=== PATIENT | female | born 1955 | race Caucasian/White ===

== ENCOUNTER 2022-11-08 08:00 | Outpatient (CLI) | payer MEDICARE, OTHER ==
--- NOTE | 2022-11-08 14:31 | XRAY Report ---
PROCEDURE: Hip BILAT INDICATIONS: BILAT HIP PAIN TECHNIQUE AP pelvis and lateral view both hips.. COMPARISON: None FINDINGS: Bones: No fractures or dislocations. No suspicious bony lesions. The visualized pelvic ring appear s intact. There is moderate to severe osteoarthritic type degenerative change involving the patient's right hip with mild osteoarthritic type degenerative change involving the left hip. Soft tissues: No suspicious soft tissue calcifications or masses. IMPRESSION: 1. No evidence for acute osseous abnormality involving either the right or left hip or pelvis. 2. Moderate to severe osteoarthritic type degenerative change right hip. 3. Mild osteoarthritic degenerative changes left hip. Reviewed by: Rios Bourgeois MD on 11/08/2022 2:29 PM PDT Approved by: Rios Bourgeois MD on 11/08/2022 2:29 PM PDT Station ID: [id number]
== END 2022-11-08 23:59 | disposition home or self-care (01) ==
LOC: DI.WOS 08:00
PROVIDERS: ATTEND Physician Assistant Surgical
DX: M16.0 Bilateral primary osteoarthritis of hip (principal)

== ENCOUNTER 2023-04-21 11:16 | Outpatient (CLI) | payer MEDICARE, OTHER ==
[2023-04-21 11:35] LABS: BASOPHILS # (AUTO) 0.1 10^3/uL (0.0-0.1); EOSINOPHILS # (AUTO) 0.2 10^3/uL (0.0-0.7); EOSINOPHILS % (AUTO) 3.8 %; HCT - HEMATOCRIT 38.6 % (37.0-47.0); HGB - HEMOGLOBIN 12.3 g/dL (12.0-16.0); LYMPHOCYTES % (AUTO) 32.6 %; MEAN CORPUSCULAR HGB CONC 31.9 g/dL (32.0-36.0); MONOCYTES # (AUTO) 0.7 10^3/uL (0.0-1.0); MONOCYTES % (AUTO) 11.7 %; NEUTROPHILS # (AUTO) 3.1 10^3/uL (1.5-6.6); NEUTROPHILS % (AUTO) 50.7 %; PLT - PLATELET COUNT 337 10^3/uL (130-450); RED BLOOD COUNT 4.24 10^6/uL (4.20-5.40); RED CELL DISTRIBUTION WIDTH 13.1 % (12.0-15.0); WHITE BLOOD COUNT 6.1 x10^3/uL (4.8-10.8)
[2023-04-21 12:10] LABS: ALBUMIN 3.9 g/dL (3.2-5.5); CALCIUM 9.1 mg/dL (8.5-10.3); CREATININE 0.8 mg/dL (0.6-1.3); POTASSIUM 4.3 mmol/L (3.5-4.5)
[2023-04-21 13:13] LABS: ESTIMATED AVERAGE GLUCOSE 114 mg/dL (70-100); HEMOGLOBIN A1c% 5.6 % (4.27-6.07)
[2023-04-22 06:10] LABS: HCV AB Non Reactive (Non Reactive); HIV SCREEN 4TH GENERATION Non Reactive (Non Reactive)
== END 2023-04-21 11:17 | disposition home or self-care (01) ==
LOC: LAB 11:16
PROVIDERS: ATTEND Orthopaedic Surgery
DX: Z01.818 Encounter for other preprocedural examination (principal)
CPT/HCPCS: 36415; 80048; 82040; 83036; 84134; 85025; 86803; 93005; G0475; 87389

== ENCOUNTER 2023-05-27 09:28 | Outpatient (CLI) | payer MEDICARE, OTHER | END 2023-05-27 09:29 | disposition home or self-care (01) | LOC: LAB 09:28 | PROVIDERS: ATTEND Nurse Practitioner Acute Care | DX: Z53.9 Procedure and treatment not carried out, unspecified reason (principal) | CPT/HCPCS: 80053; 80061; 83036; 83721; 84443; 85025 ==

== ENCOUNTER 2023-05-30 15:49 | Outpatient (CLI) | payer MEDICARE, OTHER ==
[2023-05-30 16:12] LABS: BASOPHILS # (AUTO) 0.1 10^3/uL (0.0-0.1); BASOPHILS % (AUTO) 0.4 %; EOSINOPHILS # (AUTO) 0.2 10^3/uL (0.0-0.7); EOSINOPHILS % (AUTO) 1.7 %; HGB - HEMOGLOBIN 9.6 g/dL (12.0-16.0); LYMPHOCYTES % (AUTO) 25.2 %; MEAN CORPUSCULAR HEMOGLOBIN 28.4 pg (27.0-31.0); MEAN CORPUSCULAR VOLUME 88.8 fL (81.0-99.0); MEAN PLATELET VOLUME 8.9 fL (7.9-10.8); MONOCYTES # (AUTO) 1.4 10^3/uL (0.0-1.0); MONOCYTES % (AUTO) 11.3 %; NEUTROPHILS # (AUTO) 7.3 10^3/uL (1.5-6.6); NEUTROPHILS % (AUTO) 61.2 %; PLT - PLATELET COUNT 384 10^3/uL (130-450); RED BLOOD COUNT 3.38 10^6/uL (4.20-5.40); RED CELL DISTRIBUTION WIDTH 13.7 % (12.0-15.0)
[2023-05-30 16:42] LABS: THYROID STIMULATING HORMONE 0.63 uIU/mL (0.34-5.60)
[2023-05-30 16:56] LABS: ALBUMIN 3.8 g/dL (3.2-5.5); ALBUMIN/GLOBULIN RATIO 1.1 (1.0-2.2); ALKALINE PHOSPHATASE 83 IU/L (42-121); ALT ALANINE AMINOTRANSFERASE 22 IU/L (10-60); AST ASPARTATE AMINOTRANSFERASE 23 IU/L (10-42); BILIRUBIN,TOTAL 0.6 mg/dL (0.2-1.0); BUN - BLOOD UREA NITROGEN 13 mg/dL (6-20); CALCIUM 9.1 mg/dL (8.5-10.3); CARBON DIOXIDE - CO2 28 mmol/L (21-32); CHLORIDE 101 mmol/L (101-111); CHOL/HDL RATIO 3.5 (<4.4); CHOLESTEROL 180 mg/dL; CREATININE 0.7 mg/dL (0.6-1.3); GFR - MDRD 84 (>89); GLUCOSE 96 mg/dL (74-104); HDL CHOLESTEROL 52 mg/dL; LDL CHOLESTEROL,CALCULATED 111 mg/dL; LDL/HDL RATIO 2.1 (<4.4); POTASSIUM 3.9 mmol/L (3.5-4.5); SODIUM 136 mmol/L (135-145); TOTAL PROTEIN 7.3 g/dL (6.4-8.9); TRIGLYCERIDES 85 mg/dL (48-352); VLDL CHOLESTEROL 17 mg/dL
[2023-05-30 22:40] LABS: ESTIMATED AVERAGE GLUCOSE 108 mg/dL (70-100); HEMOGLOBIN A1c% 5.4 % (4.27-6.07)
== END 2023-05-30 15:50 | disposition home or self-care (01) ==
LOC: LAB 15:49
PROVIDERS: ATTEND Nurse Practitioner Acute Care
DX: Z13.228 Encounter for screening for other metabolic disorders (principal); Z13.220 Encounter for screening for lipoid disorders; Z13.1 Encounter for screening for diabetes mellitus; Z13.29 Encounter for screening for other suspected endocrine disorder; Z13.0 Encounter for screening for diseases of the blood and blood-forming organs and certain disorders involving the immune mechanism
CPT/HCPCS: 36415; 80053; 80061; 83036; 83721; 84443; 85025

== ENCOUNTER 2023-06-13 12:49 | Outpatient (CLI) | payer MEDICARE, OTHER ==
[2023-06-13 14:41] LABS: BASOPHILS # (AUTO) 0.1 10^3/uL (0.0-0.1); BASOPHILS % (AUTO) 0.9 %; EOSINOPHILS # (AUTO) 0.5 10^3/uL (0.0-0.7); EOSINOPHILS % (AUTO) 6.9 %; HCT - HEMATOCRIT 31.9 % (37.0-47.0); HGB - HEMOGLOBIN 9.9 g/dL (12.0-16.0); LYMPHOCYTES # (AUTO) 2.6 10^3/uL (1.5-3.5); LYMPHOCYTES % (AUTO) 37.3 %; MEAN CORPUSCULAR HEMOGLOBIN 27.6 pg (27.0-31.0); MEAN CORPUSCULAR VOLUME 88.9 fL (81.0-99.0); MONOCYTES # (AUTO) 0.9 10^3/uL (0.0-1.0); MONOCYTES % (AUTO) 12.7 %; NEUTROPHILS # (AUTO) 2.9 10^3/uL (1.5-6.6); NEUTROPHILS % (AUTO) 41.9 %; PLT - PLATELET COUNT 401 10^3/uL (130-450); RED BLOOD COUNT 3.59 10^6/uL (4.20-5.40); RED CELL DISTRIBUTION WIDTH 14.4 % (12.0-15.0); WHITE BLOOD COUNT 6.9 x10^3/uL (4.8-10.8)
[2023-06-13 17:11] LABS: CREATININE 0.8 mg/dL (0.6-1.3); POTASSIUM 4.1 mmol/L (3.5-4.5)
== END 2023-06-13 12:50 | disposition home or self-care (01) ==
LOC: LAB.S 12:49
PROVIDERS: ATTEND Nurse Practitioner Acute Care
DX: Z13.228 Encounter for screening for other metabolic disorders (principal); Z87.19 Personal history of other diseases of the digestive system
CPT/HCPCS: 36415; 80048; 85025

== ENCOUNTER 2023-08-20 10:23 | Outpatient (CLI) | payer MEDICARE, OTHER ==
[2023-08-20 10:46] LABS: BASOPHILS # (AUTO) 0.1 10^3/uL (0.0-0.1); BASOPHILS % (AUTO) 1.2 %; EOSINOPHILS # (AUTO) 0.2 10^3/uL (0.0-0.7); EOSINOPHILS % (AUTO) 2.8 %; HCT - HEMATOCRIT 35.1 % (37.0-47.0); HGB - HEMOGLOBIN 10.6 g/dL (12.0-16.0); LYMPHOCYTES # (AUTO) 2.4 10^3/uL (1.5-3.5); LYMPHOCYTES % (AUTO) 35.7 %; MEAN CORPUSCULAR HEMOGLOBIN 25.6 pg (27.0-31.0); MEAN CORPUSCULAR HGB CONC 30.2 g/dL (32.0-36.0); MEAN CORPUSCULAR VOLUME 84.8 fL (81.0-99.0); MEAN PLATELET VOLUME 8.8 fL (7.9-10.8); MONOCYTES # (AUTO) 0.8 10^3/uL (0.0-1.0); NEUTROPHILS # (AUTO) 3.3 10^3/uL (1.5-6.6); NEUTROPHILS % (AUTO) 48.2 %; PLT - PLATELET COUNT 358 10^3/uL (130-450); RED BLOOD COUNT 4.14 10^6/uL (4.20-5.40); RED CELL DISTRIBUTION WIDTH 14.4 % (12.0-15.0); WHITE BLOOD COUNT 6.8 x10^3/uL (4.8-10.8)
[2023-08-20 11:02] LABS: CALCIUM 9.2 mg/dL (8.5-10.3); CREATININE 0.8 mg/dL (0.6-1.3); POTASSIUM 4.2 mmol/L (3.5-4.5)
== END 2023-08-20 10:24 | disposition home or self-care (01) ==
LOC: LAB 10:23
DX: Z13.228 Encounter for screening for other metabolic disorders (principal); Z87.19 Personal history of other diseases of the digestive system
CPT/HCPCS: 36415; 80048; 85025

== ENCOUNTER 2023-11-22 08:43 | Outpatient (CLI) | payer MEDICARE, OTHER ==
[2023-11-22 15:07] LABS: BASOPHILS # (AUTO) 0.1 10^3/uL (0.0-0.1); BASOPHILS % (AUTO) 1.1 %; EOSINOPHILS # (AUTO) 0.2 10^3/uL (0.0-0.7); EOSINOPHILS % (AUTO) 3.4 %; HCT - HEMATOCRIT 36.7 % (37.0-47.0); HGB - HEMOGLOBIN 10.9 g/dL (12.0-16.0); LYMPHOCYTES # (AUTO) 2.8 10^3/uL (1.5-3.5); LYMPHOCYTES % (AUTO) 45.2 %; MEAN CORPUSCULAR HEMOGLOBIN 26.3 pg (27.0-31.0); MEAN CORPUSCULAR HGB CONC 29.7 g/dL (32.0-36.0); MEAN CORPUSCULAR VOLUME 88.6 fL (81.0-99.0); MEAN PLATELET VOLUME 9.6 fL (7.9-10.8); MONOCYTES # (AUTO) 0.8 10^3/uL (0.0-1.0); MONOCYTES % (AUTO) 12.7 %; NEUTROPHILS # (AUTO) 2.3 10^3/uL (1.5-6.6); NEUTROPHILS % (AUTO) 37.4 %; PLT - PLATELET COUNT 347 10^3/uL (130-450); RED BLOOD COUNT 4.14 10^6/uL (4.20-5.40); RED CELL DISTRIBUTION WIDTH 15.4 % (12.0-15.0); WHITE BLOOD COUNT 6.2 x10^3/uL (4.8-10.8)
[2023-11-22 15:14] LABS: THYROID STIMULATING HORMONE 1.59 uIU/mL (0.34-5.60)
[2023-11-22 15:16] LABS: ALBUMIN 3.8 g/dL (3.2-5.5); ALKALINE PHOSPHATASE 68 IU/L (42-121); ALT ALANINE AMINOTRANSFERASE 12 IU/L (10-60); AST ASPARTATE AMINOTRANSFERASE 15 IU/L (10-42); BILIRUBIN,TOTAL 0.4 mg/dL (0.2-1.0); BUN - BLOOD UREA NITROGEN 24 mg/dL (6-20); CALCIUM 9.4 mg/dL (8.5-10.3); CARBON DIOXIDE - CO2 28 mmol/L (21-32); CHLORIDE 103 mmol/L (101-111); CHOL/HDL RATIO 4.1 (<4.4); CHOLESTEROL 221 mg/dL; CREATININE 0.9 mg/dL (0.6-1.3); GFR - MDRD 62 (>89); GLUCOSE 96 mg/dL (74-104); HDL CHOLESTEROL 54 mg/dL; LDL CHOLESTEROL,CALCULATED 142 mg/dL; LDL/HDL RATIO 2.6 (<4.4); POTASSIUM 4.3 mmol/L (3.5-4.5); SODIUM 136 mmol/L (135-145); TOTAL PROTEIN 7.6 g/dL (6.4-8.9); TRIGLYCERIDES 123 mg/dL (48-352); VLDL CHOLESTEROL 25 mg/dL
== END 2023-11-22 08:44 | disposition home or self-care (01) ==
LOC: LAB.S 08:43
PROVIDERS: ATTEND Nurse Practitioner Acute Care
DX: Z13.228 Encounter for screening for other metabolic disorders (principal); Z13.220 Encounter for screening for lipoid disorders; Z13.29 Encounter for screening for other suspected endocrine disorder; Z13.0 Encounter for screening for diseases of the blood and blood-forming organs and certain disorders involving the immune mechanism
CPT/HCPCS: 36415; 80053; 80061; 83721; 84443; 85025

== ENCOUNTER 2024-02-22 11:35 | Outpatient (CLI) | payer MEDICARE, OTHER ==
[2024-02-22 15:27] LABS: ALBUMIN 3.9 g/dL (3.2-5.5); ALBUMIN/GLOBULIN RATIO 1.2 (1.0-2.2); ALKALINE PHOSPHATASE 64 IU/L (42-121); ALT ALANINE AMINOTRANSFERASE 12 IU/L (10-60); AST ASPARTATE AMINOTRANSFERASE 17 IU/L (10-42); BILIRUBIN,TOTAL 0.5 mg/dL (0.2-1.0); BUN - BLOOD UREA NITROGEN 23 mg/dL (6-20); CALCIUM 9.5 mg/dL (8.5-10.3); CARBON DIOXIDE - CO2 27 mmol/L (21-32); CHLORIDE 103 mmol/L (101-111); CHOL/HDL RATIO 2.2 (<4.4); CHOLESTEROL 146 mg/dL; CREATININE 0.9 mg/dL (0.6-1.3); GFR - MDRD 62 (>89); GLUCOSE 93 mg/dL (74-104); HDL CHOLESTEROL 66 mg/dL; LDL CHOLESTEROL,CALCULATED 68 mg/dL; SODIUM 136 mmol/L (135-145); TOTAL PROTEIN 7.1 g/dL (6.4-8.9); TRIGLYCERIDES 59 mg/dL; VLDL CHOLESTEROL 12 mg/dL
== END 2024-02-22 11:36 | disposition home or self-care (01) ==
LOC: LAB.S 11:35
PROVIDERS: ATTEND Nurse Practitioner Acute Care
DX: E78.5 Hyperlipidemia, unspecified (principal); Z13.228 Encounter for screening for other metabolic disorders
CPT/HCPCS: 36415; 80053; 80061; 83721

== ENCOUNTER 2024-05-08 09:24 | Outpatient (CLI) | payer MEDICARE, OTHER ==
--- NOTE | 2024-05-11 16:06 | Mammography Report ---
BILATERAL DIGITAL SCREENING MAMMOGRAM 3D/2D: 05/08/2024 CLINICAL: Routine screening. No prior exams were available for comparison. There are scattered areas of fibroglandular density (category b / 25%-50% glandular tissue). There are benign calcifications in both breasts. No significant masses, calcifications, or other findings are seen in either breast. IMPRESSION: BENIGN There is no mammographic evidence of malignancy. A 1 year screening mammogram is recommended. Based on the Tyrer Cuzick model (a risk assessment model) the patient's lifetime risk is 5.8% and her 10 year risk is 3.0%. According to the ACR, ACS, and NCCN guidelines, an annual breast MRI exam kenney g with mammogram is recommended if the patient's lifetime risk is 20% or greater. This exam was interpreted at Station ID: [id number]. NOTE: For mammograms, a report in lay terms will be sent to the patient. Approximately 15% of breast malignancies will not be visualized mammographically. In the management of a palpable breast mass, a negative mammogram must not discourage biopsy of a clinically suspicious lesion. Electronically Signed By: Trenton pierson/salima:05/11/2024 11:30:45 letter sent: No_Letter ACR BI-RADS Category 2: Benign PARENCHYMAL PATTERN: (A) - The breast(s) demonstrate(s) scattered fibroglandular densities. BI-RADS CATEGORY: (2) - 2 RECOMMENDATION: (ANNUAL) - Recommend routine annual screening mammography. [id number] 1 year screening LATERALITY: (B)
== END 2024-05-08 09:25 | disposition home or self-care (01) ==
LOC: DI 09:24
PROVIDERS: ATTEND Nurse Practitioner Acute Care
DX: Z12.31 Encounter for screening mammogram for malignant neoplasm of breast (principal)

== ENCOUNTER 2024-05-08 09:25 | Outpatient (CLI) | payer MEDICARE, OTHER ==
--- NOTE | 2024-05-08 10:27 | DEXA Report ---
PROCEDURE: Dexa Spine and/or Hip INDICATIONS: POST MENOPAUSAL TECHNIQUE: Dual energy x-ray absorptiometry (DXA) was performed on a [employer] System. Regions measur ed are the AP Spine, femoral neck, and if needed forearm. COMPARISON: None FINDINGS: Lumbar Spine: Bone Mineral Density: 1.054 g/cm/cm,T score: -1.0. Left Femoral Neck: Bone Mineral Density: 0.855 g/cm/cm, T score: -1.3. Left Hip: Bone Mineral Density: 0.895 g/cm/cm,T score: -0.9. FRAX risk factors: None given. 10 year risk of major osteoporotic fracture: 8.3% major osteoporotic fracture = hip, clinical vertebral, proximal humerus, distal forearm 10 year risk of hip fracture: 0.8% (T score greater or equal to -1.0: NORMAL) (T score from -1.1 to -2.4: OSTEOPENIA) (T score less than or equal to -2.5 to: OSTEOPOROSIS) Impression: By WHO criteria, this patient has low bone density (osteopenia). Patients with diagnosis of osteoporosis or osteopenia should have regular bone mineral density assess ment. For those eligible for Medicare, routine testing is allowed once every 2 years. Testing frequ ency can be increased for patients who have rapidly progressing disease or for those who are receivin g medical therapy to restore bone mass. Reviewed by: Esequiel Palomo MD on 05/08/2024 10:26 AM PDT Approved by: Esequiel Palomo MD on 05/08/2024 10:26 AM PDT Station ID: [id number]
== END 2024-05-08 09:26 | disposition home or self-care (01) ==
LOC: DI 09:25
PROVIDERS: ATTEND Nurse Practitioner Acute Care
DX: M85.89 Other specified disorders of bone density and structure, multiple sites (principal); Z78.0 Asymptomatic menopausal state